=== PATIENT | female | born 1955 | race Caucasian/White ===

== ENCOUNTER 2019-03-20 09:21 | Day surgery (SDC) | payer MEDICARE ==
[~2019-03-20] VITALS: Ht 160 cm; Wt 101.7 kg
[2019-03-20] MEDS ORDERED: ALBU90OI (10:35)
[2019-03-20] MEDS ORDERED: HYDCHL25 (10:35)
[2019-03-20] MEDS ORDERED: METO25ER (10:36)
[2019-03-20] MEDS ORDERED: GABA100 (10:37)
[2019-03-20] MEDS ORDERED: LEVSOD100 (10:37)
[2019-03-20] MEDS ORDERED: PRAV20 (10:37)
[2019-03-20] MEDS ORDERED: Percocet 10-321 EACH (10:38)
[2019-03-20] MEDS ORDERED: OMEPRAZOLE20 MG (10:38)
--- NOTE | 2019-03-20 10:41 | NUR ---
03/20/19 1041 Madeleine Munson 1 IV MISS IN RFA VALVE 1 MISSED IV IN RAC BY HORACE VALVE 1 GOOD IV IN LAC B Y RN PT TOW
== END 2019-03-20 12:21 | disposition home or self-care (01) ==
LOC: ORSCSDS 09:21
PROVIDERS: Internal Medicine Gastroenterology
PROC: 0DB68ZX Excision of Stomach, Via Natural or Artificial Opening Endoscopic, Diagnostic (ICD-10-PCS; principal; 2019-03-20 10:45)
PROC: 0DB58ZX Excision of Esophagus, Via Natural or Artificial Opening Endoscopic, Diagnostic (ICD-10-PCS; principal; 2019-03-20 10:45)
PROC: 0DBH8ZX Excision of Cecum, Via Natural or Artificial Opening Endoscopic, Diagnostic (ICD-10-PCS; principal; 2019-03-20 10:45)
DX: R10.13 Epigastric pain (principal); Z12.11 Encounter for screening for malignant neoplasm of colon; D12.0 Benign neoplasm of cecum; K20.9 Esophagitis, unspecified; K44.9 Diaphragmatic hernia without obstruction or gangrene; K64.8 Other hemorrhoids; K57.30 Diverticulosis of large intestine without perforation or abscess without bleeding; J45.909 Unspecified asthma, uncomplicated; Z79.899 Other long term (current) drug therapy
CPT/HCPCS: 88305; 88342; J2704; J7120

== ENCOUNTER 2019-12-18 21:09 | Emergency (ER) | payer MEDICARE ==
[~2019-12-18] VITALS: Ht 160 cm; Wt 105.2 kg
[~2019-12-18 21:09] MED LIST: ALBU90OI; GABA100; HYDCHL25; LEVSOD100; METO25ER; OMEPRAZOLE20 MG; PRAV20; Percocet 10-321 EACH
== END 2019-12-18 22:15 | disposition left against medical advice (07) ==
LOC: ER 21:09
DX: Z53.21 Procedure and treatment not carried out due to patient leaving prior to being seen by health care provider (principal)